=== PATIENT | male | born 1995 | race Caucasian/White ===

== ENCOUNTER 2022-02-15 20:40 | Emergency (ER) | payer SELFPAY ==
[~2022-02-15] VITALS: Ht 160 cm; Wt 49.9 kg
[2022-02-15 21:03] VITALS: BP 138/72
--- NOTE | 2022-02-15 21:07 | NUR ---
TO LOBBY A/W BED AMBULATORY
--- NOTE | 2022-02-15 22:53 | NUR ---
26YR OLD MALE BIB SELF C/O VOMITING DIZZY XTODAY. PT STATES TAKING A SHOWER GOT DIZZY AND VOMITED UP DARK EMESIS. DENIES DIARRHEA. PT FALL GETTING OUT OF SHOWER DENIES LOC OR HITTING HEAD. PAIN TO JUAN MANUEL LEGS AND L WRIST. SKIN WARM AND DRY. PT IS A&OX4 [place] SPEAKING ONLY. PT IS ON BEDSIDE MONITOR. HOB ELEVATED BED AT LOWEST POSITION. NKDA DENIES HX
[2022-02-15] MEDS ORDERED: NACL 0.9% 1,000 ML IV ONE (23:20)
[2022-02-15] MEDS ORDERED: MORPHINE SULFATE 4 MG/ML SYR IVP ONE (23:20)
[2022-02-15] MEDS ORDERED: ONDANSETRON 4 MG/2 ML VIAL IVP ONE (23:20)
--- NOTE | 2022-02-15 23:55 | NUR ---
BP OF 109/69 HR 75, NEW PENDLETON MADE AWARE, ORDERED FOR MORPHINE TO BE HELD. ORDERS CARRIED OUT.
[2022-02-15 23:57] LABS: BASOPHILS % (AUTO) 0.2 % (0.0-2.0); HEMATOCRIT 42.5 % (36-52); HEMOGLOBIN 14.6 g/dL (12.0-18.0); LYMPHOCYTES # (AUTO) 0.4 K/uL (2.0-11.5); LYMPHOCYTES % (AUTO) 3.2 % (20.5-51.1); MEAN CORPUSCULAR HEMOGLOBIN 30 pg (27-31); MEAN CORPUSCULAR HGB CONC 34 g/dL (33-37); MEAN CORPUSCULAR VOLUME 85.9 fL (80-94); MONOCYTES # (AUTO) 0.4 K/uL (0.8-1.0); MONOCYTES % (AUTO) 3.8 % (1.7-9.3); NEUTROPHILS # (AUTO) 10.6 K/uL (1.8-7.7); NEUTROPHILS % (AUTO) 92.8 % (42.2-75.2); PLATELET COUNT (AUTO) 196 K/uL (140-450); RED BLOOD CELL COUNT(AUTO) 4.94 MIL/uL (4.20-6.10); RED CELL DISTRIBUTION WIDTH 13.2 % (11.6-13.7); WHITE BLOOD COUNT (AUTO) 11.5 K/uL (4.8-10.8)
[2022-02-16 00:08] LABS: ALBUMIN 4.2 g/dL (3.4-5.0); ANION GAP 13.4 (8-16); CARBON DIOXIDE 27.8 mmol/L (21-32); CREATININE 0.8 mg/dL (0.6-1.3); POTASSIUM 3.2 mmol/L (3.5-5.1); TOTAL BILIRUBIN 0.9 mg/dL (0.0-1.0)
--- NOTE | 2022-02-16 00:34 | NUR ---
PT BACK FROM CT. PT STATES PAIN LEVEL IS AT 3. RESTING IN BED ON BEDSIDE MONITOR. HOB ELEVATED.
--- NOTE | 2022-02-16 01:11 | NUR ---
COVID AND FLU SWABS COLLECTED AND SENT TO LAB
[2022-02-16] MEDS ORDERED: KETOROLAC 15 MG/ML VIAL IVP ONE (01:25)
[2022-02-16] MEDS ORDERED: POTASSIUM CHLORIDE 10 MEQ TABER PO ONE (01:25)
[2022-02-16] MEDS ORDERED: BEN10 PO (01:46)
[2022-02-16] MEDS ORDERED: ONDA-188 PO (01:46)
[2022-02-16 02:05] VITALS: BP 101/52
--- NOTE | 2022-02-16 02:05 | NUR ---
Patient discharged with v/s stable. Written and verbal after care instructions given and explained. Patient alert, oriented and verbalized understanding of instructions. Ambulatory with steady gait. All questions addressed prior to discharge. ID band removed. Patient advised to follow up with PMD. Rx of CORY PHAM given.
== END 2022-02-16 02:05 | disposition home or self-care (01) ==
LOC: MED 20:40
DX: E87.6 Hypokalemia (principal); Z20.822 Contact with and (suspected) exposure to COVID-19; E86.0 Dehydration; R11.10 Vomiting, unspecified
CPT/HCPCS: 36415; 74177; 80053; 81002; 82550; 83690; 85025; 87426; 87804; 96361; 96374; 96375; 99285; J1885; J2270; J2405; J7030; Q9967